=== PATIENT | male | born 1995 | race Caucasian/White ===

== ENCOUNTER 2021-07-29 08:57 | Emergency (ER) | payer SELFPAY ==
[2021-07-29 09:10] VITALS: BP 136/77; PULSE 97; O2SAT 98
--- NOTE | 2021-07-29 09:17 | ERPHSYRPT ---
- History of Present Illness Time Seen by Provider: 07/29/21 09:14 Source: patient Exam Limitations: no limitations Patient Subjective Stated Complaint: Toothache Triage Nursing Assessment: Patient ambulated back to ED and transferred self to bed. Patient A+O X3. Patient's skin pink, warm and dry. Patient complains right sided lower back toothache that started two days ago. Patient complains of constant sharp aching pain 8/10. Redness and decay noted to gum and tooth. Physician History: 25 years old male with history of dental caries/periodontal disease presented in the ER with 2-3 days history of off-and-on right lower molar area to take moderate intensity with increased cold and hot touch and more with movements of jaw/swallowing on that side with associated gingival swelling. Reports having similar symptoms few months ago and left given antibiotics but did not do dental follow-up. No fever or chills reported. Timing/Duration: gradual onset, days (2) Severity: moderate ENT Location: dental Prearrival Treatment: over the counter meds Associated Symptoms: jaw pain, tooth pain Allergies/Adverse Reactions: No Known Drug Allergies Allergy (Unverified 07/29/21 09:04) Hx Influenza Vaccination/Date Given: No Hx Pneumococcal Vaccination/Date Given: No Immunizations Up to Date: Yes Travel Risk - International Travel Have you traveled outside of the country in past 3 weeks: No - Coronavirus Screening Are you exhibiting any of the following symptoms?: No Close contact with a COVID-19 positive Pt in past 14-21 Days: No - Vaccine Status Have you recieved a Covid-19 vaccination: No - Review of Systems Constitutional: No Symptoms Eyes: No Symptoms Ears, Nose, & Throat: Mouth Pain, Mouth Swelling Respiratory: No Symptoms Cardiac: No Symptoms Abdominal/Gastrointestinal: No Symptoms Genitourinary Symptoms: No Symptoms Skin: No Symptoms Endocrine: No Symptoms Hematologic/Lymphatic: No Symptoms - Past Medical History Pertinent Past Medical History: No Neurological History: No Pertinent History ENT History: No Pertinent History Cardiac History: No Pertinent History Respiratory History: No Pertinent History Endocrine Medical History: No Pertinent History Musculoskeletal History: No Pertinent History GI Medical History: No Pertinent History History: No Pertinent History Psycho-Social History: No Pertinent History Male Reproductive Disorders: No Pertinent History - Past Surgical History Past Surgical History: No Neuro Surgical History: No Pertinent History Cardiac: No Pertinent History Respiratory: No Pertinent History Gastrointestinal: No Pertinent History Genitourinary: No Pertinent History Musculoskeletal: No Pertinent History Male Surgical History: No Pertinent History - Social History Smoking Status: Current every day smoker How long have you smoked: years Exposure to second hand smoke: Yes Drug Use: none Patient Lives Alone: No - Nursing Vital Signs Nursing Vital Signs: Initial Vital Signs Temperature 97.7 F 07/29/21 09:05 Pulse Rate 97 H 07/29/21 09:05 Respiratory Rate 18 07/29/21 09:05 Blood Pressure 136/77 07/29/21 09:05 O2 Sat by Pulse Oximetry 98 07/29/21 09:05 Pain Scale Pain Intensity 8 - Physical Exam General Appearance: no apparent distress, alert Eye Exam: bilateral eye: normal inspection, PERRL, EOMI Ear Exam: bilateral ear: auricle normal, canal normal, TM normal Nasal Exam: normal inspection Throat Exam: dental tenderness (Right lower molar with gingival swelling, tenderness but no fluctuation.), moist mucus membranes Neck Exam: normal inspection, non-tender, supple, full range of motion Cardiovascular/Respiratory Exam: normal breath sounds, regular rate/rhythm Neurologic Exam: alert, oriented x 3, cooperative, mother baby rn II-XII nml as tested Skin Exam: normal color SpO2 Interpretation: normal SpO2: 98 O2 Delivery: Room Air - Progress Progress: unchanged Progress Note: 07/29/21 09:15 Started on Augmentin, recommended outpatient follow-up. Offered pain medication here which he refused. Counseled pt/family regarding: diagnosis, need for follow-up - Departure Departure Disposition: Home Clinical Impression: Dental infection Condition: Stable Critical Care Time: No Referrals: DOCTOR,NO FAMILY [Primary Care Provider] - YA GOMEZ DDS [NON-STAFF PHY W/O PRIVILEGES] - (Call today for appointment) Instructions: Tooth Abscess (DC), Dental Pain (DC) Additional Instructions: Use Tylenol/ibuprofen as needed. Follow-up with primary dentist for reevaluation. Return to ER for worsening pain, swelling, fever chills etc. Prescriptions: Ibuprofen 600 mg PO Q6HPRN PRN 10 Days #20 tablet PRN Reason: Pain Amoxicillin/Potassium Clav [Augmentin 875-125 Tablet] 875 mg PO BID 7 Days #14 tablet
== END 2021-07-29 09:33 | disposition home or self-care (01) ==
LOC: ED 08:57
DX: K02.9 Dental caries, unspecified (principal)
CPT/HCPCS: 99283